=== PATIENT | male | born 1960 | race Caucasian/White ===

== ENCOUNTER 2017-09-29 10:06 | Inpatient (IN) | payer OTHER, BC ==
[~2017-09-29] VITALS: Ht 177.8 cm; Wt 75.0 kg
[2017-09-29] MEDS ORDERED: ASPI-183 PO (10:12)
[2017-09-29 10:13] VITALS: BP 152/83; PULSE 100; RESP 18; O2SAT 100
[2017-09-29] MEDS ORDERED: ceFAZolin 2 GM PREMIX 50 ML IV ONE (10:15)
[2017-09-29] MEDS ORDERED: SODIUM CHLOR 0.9% 1000 ML INJ 1,000 ML IV ONE (10:15)
[2017-09-29] MEDS ORDERED: HYDROmorphone HCL PF 1 MG/ML VIAL IV PUSH ONE ×3 (10:15→11:45)
[2017-09-29] MEDS ORDERED: GENTAMICIN 80 MG PREMIX 100 ML IV ONE (10:15)
[2017-09-29] MEDS ORDERED: HYDROmorphone HCL PF 2 MG/ML VIAL IV PUSH ONE (10:30)
[2017-09-29 10:44] LABS: AUTOMATED NEUTROPHIL # 11.9 TH/MM3 (1.8-7.7); BASOPHIL # 0.1 TH/MM3 (0-0.2); BASOPHIL % 0.8 % (0.0-2.0); EOSINOPHIL # 0.2 TH/MM3 (0-0.4); HEMATOCRIT 46.1 % (39.0-51.0); HEMOGLOBIN 15.7 GM/DL (13.0-17.0); LYMPH % 12.5 % (9.0-44.0); LYMPHOCYTE # 1.9 TH/MM3 (1.0-4.8); MEAN CELL VOLUME 87.6 FL (80.0-100.0); MEAN CORPUSCULAR HEMOGLOBIN 29.9 PG (27.0-34.0); MEAN CORPUSCULAR HGB CONC 34.1 % (32.0-36.0); MEAN PLATELET VOLUME 10.3 FL (7.0-11.0); MONO % 6.8 % (0.0-8.0); NEUT % 78.9 % (16.0-70.0); PLATELET COUNT 151 TH/MM3 (150-450); RED BLOOD COUNT 5.26 MIL/MM3 (4.50-5.90); RED CELL DISTRIBUTION WIDTH 14.4 % (11.6-17.2); WHITE BLOOD COUNT 15.1 TH/MM3 (4.0-11.0)
[2017-09-29 11:01] VITALS: BP 152/83; PULSE 93; RESP 16; O2SAT 97
[2017-09-29 11:03] LABS: ALBUMIN 3.2 GM/DL (3.4-5.0); ALT (GPT) 20 U/L (12-78); AST (GOT) 21 U/L (15-37); BICARBONATE 26.8 MEQ/L (21.0-32.0); BLOOD UREA NITROGEN 10 MG/DL (7-18); CALCIUM 8.3 MG/DL (8.5-10.1); CHLORIDE 105 MEQ/L (98-107); CREATININE 0.91 MG/DL (0.60-1.30); GLOMERULAR FILTRATION RATE 86 ML/MIN (>89); GLUCOSE,RANDOM 99 MG/DL (74-106); SODIUM (NA) 138 MEQ/L (136-145)
[2017-09-29 11:05] LABS: ALKALINE PHOSPHATASE 84 U/L (45-117); PROTHROMBIN TIME - PATIENT 10.5 SEC (9.8-11.6); TOTAL BILIRUBIN ADULT 0.4 MG/DL (0.2-1.0); TOTAL PROTEIN 7.2 GM/DL (6.4-8.2)
--- NOTE | 2017-09-29 11:10 | RADRPT ---
EXAM DATE/TIME: 09/29/2017 10:32 [place] COMPARISON: No previous studies available for comparison. INDICATIONS : Left foot pain after being crushed by a forklift today. MEDICAL HISTORY : No pertinent medical history SURGICAL HISTORY : No pertinent surgical history. ENCOUNTER: Initial ACUITY: 1 day PAIN SCORE: 10/10 LOCATION: Left foot. FINDINGS: 3 views of the left foot reveal acute fractures involving the barbara of the distal phalanges of the fi rst and third toes. A bone fragment is displaced laterally involving the first tuft fracture. No radi o opaque foreign bodies. Air is seen within the subcutaneous tissues between the first and second toe s. CONCLUSION: Acute tuft fractures of the first and third toes. Faraz Abrams Jr., MD on September 29, 2017 at 11:06 Board Certified Radiologist. This report was verified electronically.
--- NOTE | 2017-09-29 11:26 | PD ---
HPI Chief Complaint: Injury Time Seen by Provider: 10:13 Travel History International Travel<30 days: No Contact w/Intl Traveler<30days: No Traveled to known affect area: No History of Present Illness HPI Patient is a 56 year old male who comes in after an injury with a forklift. He says that the wheels were not turning and he tried to fix it somehow and it went over his foot. He complains of severe pain to the foot. He denies any other injuries. Foot was wrapped by EMS and he was given Morphine for pain prior to arrival. He says the Morphine is not helping. Severity is moderate to severe. PFSH Past Medical History Hx Anticoagulant Therapy: Yes (ASPIRIN 326 MG DAILY) Diminished Hearing: No Myocardial Infarction: Yes Tetanus Vaccination: > 5 Years Influenza Vaccination: Yes Past Surgical History Cardiac Surgery: Yes (QUAD BYPASS 2008) Coronary Artery Bypass Graft: Yes Other Surgery: Yes (SPLEENECTOMY ) Social History Alcohol Use: No Tobacco Use: Yes Substance Use: No Allergies-Medications (Allergen,Severity, Reaction): Coded Allergies: No Known Allergies (Unverified , 09/29/17) Reported Meds & Prescriptions Reported Meds & Active Scripts Active Reported Aspirin 325 Mg Tab 325 Mg PO DAILY Review of Systems Except as stated in HPI: all other systems reviewed are Neg General / Constitutional: No: Fever, Chills HENT: No: Headaches, Lightheadedness Cardiovascular: No: Chest Pain or Discomfort Respiratory: No: Shortness of Breath Gastrointestinal: No: Nausea, Vomiting Musculoskeletal: Positive: Pain Skin: Positive Other (lacerations) Neurologic: Positive: Dizziness, Sensory Disturbance Physical Exam Narrative GENERAL: Awake and alert, in no acute distress. SKIN: Laceration that extends around the left first toe and through the base of the remaining toes. Skin peals back to the middle of the foot. HEAD: Atraumatic. Normocephalic. EYES: Pupils equal and round. No scleral icterus. ENT: Mucous membranes pink and moist. NECK: Trachea midline. No JVD. CARDIOVASCULAR: Regular rate and rhythm. No murmur appreciated. RESPIRATORY: No accessory muscle use. Clear to auscultation. Breath sounds equal bilaterally. GASTROINTESTINAL: Abdomen soft, non-tender, nondistended. MUSCULOSKELETAL:Pedal pulses intact. able to move the toes on his left foot, good capillary refill. NEUROLOGICAL: Awake and alert. No obvious cranial nerve deficits. Motor grossly within normal limits. Normal speech. PSYCHIATRIC: Appropriate mood and affect; insight and judgment normal. Data Data Last Documented VS Vital Signs Date Time Temp Pulse Resp B/P (MAP) Pulse Ox O2 Delivery O2 Flow Rate FiO2 09/29/17 11:15 15 09/29/17 11:01 93 152/83 (106) 97 Orders Orders Iv Access Insert/Monitor (09/29/17 10:13) Complete Blood Count With Diff (09/29/17 10:13) Comprehensive Metabolic Panel (09/29/17 10:13) Act Partial Throm Time (Ptt) (09/29/17 10:13) Prothrombin Time / Inr (Pt) (09/29/17 10:13) Type And Screen (09/29/17 10:13) Sodium Chlor 0.9% 1000 Ml Inj (Ns 1000 M (09/29/17 10:15) Gentamicin 80 Mg Premix (Gentamicin 80 M (09/29/17 10:15) Cefazolin 2 Gm Premix (Ancef 2 Gm Premix (09/29/17 10:15) Foot, Complete ([id number]) (09/29/17 ) Hydromorphone Pf Inj (Dilaudid Pf Inj) (09/29/17 10:30) Hydromorphone Pf Inj (Dilaudid Pf Inj) (09/29/17 11:15) Admit To Inpatient (09/29/17 ) Vital Signs (Adult) Q4H (09/29/17 11:25) Activity Oob With Assistance (09/29/17 11:25) Diet Npo (09/29/17 Lunch) Sodium Chlor 0.9% 1000 Ml Inj (Ns 1000 M (09/29/17 12:00) Sodium Chloride 0.9% Flush (Ns Flush) (09/29/17 11:30) Sodium Chloride 0.9% Flush (Ns Flush) (09/29/17 21:00) Acetaminophen (Tylenol) (09/29/17 11:30) Ondansetron Inj (Zofran Inj) (09/29/17 11:30) Basic Metabolic Panel (Bmp) (09/30/17 06:00) Complete Blood Count With Diff (09/30/17 06:00) Resp Oxygen Brain C Titrat 1-4 L (09/29/17 ) Pt Request For Service (09/29/17 11:25) Case Management Consult (09/29/17 11:25) Scd Bilateral/Knee High CARINA.BID (09/29/17 11:25) Zach Bilateral/Knee High CARINA.QSHIFT (09/29/17 11:25) Naloxone Inj (Narcan Inj) (09/29/17 11:30) Docusate Sodium-Senna (Jane-Colace) (09/29/17 21:00) Magnesium Hydroxide Liq (Milk Of Magnesi (09/29/17 11:30) Sennosides (Senokot) (09/29/17 11:30) Bisacodyl Supp (Dulcolax Supp) (09/29/17 11:30) Lactulose Liq (Lactulose Liq) (09/29/17 11:30) Inpatient Certification (09/29/17 ) Admit Order (Ed Use Only) (09/29/17 ) Acetamin-Hydrocod 325-5 Mg ([place] 5-325 (09/29/17 11:30) Acetamin-Hydrocod 325-10 Mg ([place] 10-32 (09/29/17 11:30) Morphine Inj (Morphine Inj) (09/29/17 11:30) Hydromorphone Pf Inj (Dilaudid Pf Inj) (09/29/17 11:45) Labs Laboratory Tests Test 09/29/17 10:15 White Blood Count 15.1 TH/MM3 Red Blood Count 5.26 MIL/MM3 Hemoglobin 15.7 GM/DL Hematocrit 46.1 % Mean Corpuscular Volume 87.6 FL Mean Corpuscular Hemoglobin 29.9 PG Mean Corpuscular Hemoglobin Concent 34.1 % Red Cell Distribution Width 14.4 % Platelet Count 151 TH/MM3 Mean Platelet Volume 10.3 FL Neutrophils (%) (Auto) 78.9 % Lymphocytes (%) (Auto) 12.5 % Monocytes (%) (Auto) 6.8 % Eosinophils (%) (Auto) 1.0 % Basophils (%) (Auto) 0.8 % Neutrophils # (Auto) 11.9 TH/MM3 Lymphocytes # (Auto) 1.9 TH/MM3 Monocytes # (Auto) 1.0 TH/MM3 Eosinophils # (Auto) 0.2 TH/MM3 Basophils # (Auto) 0.1 TH/MM3 CBC Comment DIFF FINAL Differential Comment Prothrombin Time 10.5 SEC Prothromb Time International Ratio 1.0 RATIO Activated Partial Thromboplast Time 25.5 SEC Blood Urea Nitrogen 10 MG/DL Creatinine 0.91 MG/DL Random Glucose 99 MG/DL Total Protein 7.2 GM/DL Albumin 3.2 GM/DL Calcium Level 8.3 MG/DL Alkaline Phosphatase 84 U/L Aspartate Amino Transf (AST/SGOT) 21 U/L Alanine Aminotransferase (ALT/SGPT) 20 U/L Total Bilirubin 0.4 MG/DL Sodium Level 138 MEQ/L Potassium Level 3.7 MEQ/L Chloride Level 105 MEQ/L Carbon Dioxide Level 26.8 MEQ/L Anion Gap 6 MEQ/L Estimat Glomerular Filtration Rate 86 ML/MIN Triglycerides Level 82 MG/DL Cholesterol Level 174 MG/DL LDL Cholesterol 99 MG/DL HDL Cholesterol 58.3 MG/DL Cholesterol/HDL Ratio 2.98 RATIO MDM Medical Decision Making Medical Screen Exam Complete: Yes Emergency Medical Condition: Yes Medical Record Reviewed: Yes Differential Diagnosis fracture vs laceration vs degloving injury Narrative Course Patient is a 56-year-old male who comes in after a forklift rolled over his foot. Exam shows partial degloving of the left foot however, blood flow and sensation is intact to the toes. Wound was cleaned with normal saline and Betadine. Given IV antibiotics and tetanus. Given pain medicine. X-ray shows fracture of the distal barbara of the first and third toe. Podiatry consulted, Dr. Mccoy will take the patient to the OR later today. Patient admitted for further management. Diagnosis Primary Impression: Accident caused by forklift Qualified Codes: V83.9XXD - Unspecified occupant of special industrial vehicle injured in nontraffic accident, subsequent encounter Additional Impressions: Laceration of left foot with complication Qualified Codes: S91.312D - Laceration without foreign body, left foot, subsequent encounter Crush injury of left foot Qualified Codes: S97.82XD - Crushing injury of left foot, subsequent encounter Open fracture of left toe Qualified Codes: S92.422D - Displaced fracture of distal phalanx of left great toe, subsequent encounter for fracture with routine healing Admitting Information Admitting Physician Requests: Admit Veda Josue MD Sep 29, 2017 11:26
[2017-09-29] MEDS ORDERED: BISACODYL 10 MG SUPP RECTAL PRN ×2 (11:30→18:30)
[2017-09-29] MEDS ORDERED: LACTULOSE SYRUP 20 GM/30 ML CUP PO PRN ×2 (11:30→18:30)
[2017-09-29] MEDS ORDERED: SENNOSIDES 8.6 MG TAB PO PRN ×2 (11:30→18:30)
[2017-09-29] MEDS ORDERED: NALOXONE HCL 0.4 MG/ML AMP IV PUSH PRN (11:30)
[2017-09-29] MEDS ORDERED: ONDANSETRON HCL 4 MG/2 ML VIAL IVP PRN (11:30)
[2017-09-29] MEDS ORDERED: MORPHINE SULFATE 2 MG/ML INJ IV PUSH PRN (11:30)
[2017-09-29] MEDS ORDERED: MAGNESIUM HYDROXIDE SUSP 30 ML CUP PO PRN ×2 (11:30→18:30)
[2017-09-29] MEDS ORDERED: SODIUM CHLORIDE 0.9% FLUSH 10 ML FLUSH IV FLUSH PRN (11:30)
[2017-09-29] MEDS ORDERED: ACETAMINOPHEN/HYDROcodone 325 MG/5 MG TAB PO PRN (11:30)
[2017-09-29] MEDS ORDERED: ACETAMINOPHEN 325 MG TAB PO PRN (11:30)
[2017-09-29] MEDS ORDERED: GLYCOPYRROLATE 1 MG/5 ML SYRINGE IV PUSH ONE (12:00)
[2017-09-29] MEDS ORDERED: ePHEDrine/NS 25 MG/5 ML SYRINGE IV ONE (12:00)
[2017-09-29] MEDS ORDERED: PROPOFOL 200 MG/20 ML AMP IV ONE ×2 (12:00)
[2017-09-29] MEDS ORDERED: LIDOCAINE HCL 1% PF 5 ML SYRINGE OTHER ONE (12:00)
[2017-09-29] MEDS ORDERED: ROCURONIUM INJ 50 MG/5 ML SYRINGE IV PUSH ONE (12:00)
[2017-09-29] MEDS ORDERED: PHENYLEPH/NS 1000 MCG/10 ML SYR IV ONE (12:00)
[2017-09-29] MEDS ORDERED: NEOSTIGMINE 5 MG/5 ML SYRINGE IV PUSH ONE (12:00)
[2017-09-29] MEDS ORDERED: ONDANSETRON HCL 4 MG/2 ML VIAL IV ONE (12:00)
[2017-09-29] MEDS: SODIUM CHLOR 0.9% 1000 ML INJ 1,000 ML IV SCH ×2 (13:00→19:04)
[2017-09-29 13:03] VITALS: BP 122/73; PULSE 80; RESP 16; TEMP 98.4; O2SAT 96
--- NOTE | 2017-09-29 13:18 | HHI.HP ---
HPI Service [facility] Primary Care Physician Non-Staff Admission Diagnosis foot degloving, open fracture Diagnoses: Chief Complaint: pain left foot Travel History International Travel<30 Days: No Contact w/Intl Traveler <30 Da: No Traveled to Known Affected Are: No History of Present Illness Patient is a 56 year old male who comes in after an injury with a forklift. He says that the wheels were not turning and he tried to fix it somehow and it went over his foot. He has a h/p Coronary artery disease CABG in 2008, patient reports not taking metoprolol or Lipitor say is he stopped taking these medications for years ago. He is currently taking only aspirin. He denies any chest pain, palpitations, shortness of breath, nausea, lightheadedness. He was noted tachycardic on admission and was blood pressure readings are higher side however he was seen in pain at that time. Current medications are controlling the pain. Is nothing by mouth. Discussed with Dr. Mccoy podiatry plan for surgery at 4 PM today. No other complaints at this time. Review of Systems Except as stated in HPI: all other systems reviewed are Neg Past Family Social History Past Medical History Coronary artery disease CABG in 2008, patient reports not taking metoprolol or Lipitor say is he stopped taking these medications for years ago. He is currently taking only aspirin Hyperlipidemia Past Surgical History CABG 2009 Splenectomy in 1978 Reported Medications Reported Meds & Active Scripts Active Reported Aspirin 325 Mg Tab 325 Mg PO DAILY Allergies: Coded Allergies: No Known Allergies (Unverified , 09/29/17) Family History With heart problems Father healthy at the age of 82 Old brother with heart problems stent placed recently Social History Denies alcohol use or illicit drug use. Smoking 1 pack per day Physical Exam Vital Signs Vital Signs Date Time Temp Pulse Resp B/P (MAP) Pulse Ox O2 Delivery O2 Flow Rate FiO2 09/29/17 13:03 98.4 80 16 122/73 (89) 96 Room Air 09/29/17 12:15 15 09/29/17 11:15 15 09/29/17 11:01 93 16 152/83 (106) 97 09/29/17 10:13 100 18 152/83 (475) 100 Physical Exam GENERAL: This is a well-nourished, well-developed patient, in no apparent distress. SKIN: No rashes, ecchymoses or lesions. Cool and dry. HEAD: Atraumatic. Normocephalic. No temporal or scalp tenderness. EYES: Pupils equal round and reactive. Extraocular motions intact. No scleral icterus. No injection or drainage. ENT: Nose without bleeding, purulent drainage or septal hematoma. Throat without erythema, tonsillar hypertrophy or exudate. Uvula midline. Airway patent. NECK: Trachea midline. No JVD or lymphadenopathy. Supple, nontender, no meningeal signs. CARDIOVASCULAR: Regular rate and rhythm without murmurs, gallops, or rubs. RESPIRATORY: Clear to auscultation. Breath sounds equal bilaterally. No wheezes , rales, or rhonchi. GASTROINTESTINAL: Abdomen soft, non-tender, nondistended. No hepato-splenomegaly , or palpable masses. No guarding. MUSCULOSKELETAL: Left foot with a dressing on c/d/i. No calf tenderness. Negative Homans sign bilaterally. NEUROLOGICAL: Awake and alert. Cranial nerves II through XII intact. Motor and sensory grossly within normal limits. Five out of 5 muscle strength in all muscle groups. Normal speech. Laboratory Laboratory Tests Test 09/29/17 10:15 White Blood Count 15.1 Red Blood Count 5.26 Hemoglobin 15.7 Hematocrit 46.1 Mean Corpuscular Volume 87.6 Mean Corpuscular Hemoglobin 29.9 Mean Corpuscular Hemoglobin Concent 34.1 Red Cell Distribution Width 14.4 Platelet Count 151 Mean Platelet Volume 10.3 Neutrophils (%) (Auto) 78.9 Lymphocytes (%) (Auto) 12.5 Monocytes (%) (Auto) 6.8 Eosinophils (%) (Auto) 1.0 Basophils (%) (Auto) 0.8 Neutrophils # (Auto) 11.9 Lymphocytes # (Auto) 1.9 Monocytes # (Auto) 1.0 Eosinophils # (Auto) 0.2 Basophils # (Auto) 0.1 CBC Comment DIFF FINAL Differential Comment Prothrombin Time 10.5 Prothromb Time International Ratio 1.0 Activated Partial Thromboplast Time 25.5 Blood Urea Nitrogen 10 Creatinine 0.91 Random Glucose 99 Total Protein 7.2 Albumin 3.2 Calcium Level 8.3 Alkaline Phosphatase 84 Aspartate Amino Transf (AST/SGOT) 21 Alanine Aminotransferase (ALT/SGPT) 20 Total Bilirubin 0.4 Sodium Level 138 Potassium Level 3.7 Chloride Level 105 Carbon Dioxide Level 26.8 Anion Gap 6 Estimat Glomerular Filtration Rate 86 Result Diagram: 09/29/17 1015 09/29/17 1015 Imaging Last Impressions Foot X-Ray 09/29/17 0000 Signed Impressions: Service Date/Time: Friday, September 29, 2017 10:32 - CONCLUSION: Acute tuft fractures of the first and third toes. MD Tam Johnson Jr. VTE Risk Assessment Tam VTE Risk Assessment: Mod/High Risk (score >= 2) Caprini Risk Assessment Model Point Value = 1 Point Value = 2 Point Value = 3 Point Value = 5 Age 41-60 Minor surgery BMI > 25 kg/m2 Swollen legs Varicose veins or History of unexplained or recurrent spontaneous Oral contraceptives or hormone replacement Sepsis (< 1 month) Serious lung disease, including pneumonia (< 1 month) Abnormal pulmonary function Acute myocardial infarction Congestive heart failure (< 1 month) History of inflammatory bowel disease Medical patient at bed rest Age 61-74 Arthroscopic surgery Major open surgery (> 45 min) Laparoscopic surgery (> 45 min) Malignancy Confined to bed (> 72 hours) Immobilizing plaster cast Central venous access Age >= 75 History of VTE Family history of VTE Factor V Leiden Prothrombin [id number] Lupus anticoagulant Anticardiolipin antibodies Elevated serum homocysteine Heparin-induced thrombocytopenia Other congenital or acquired thrombophilia Stroke (< 1 month) Elective arthroplasty Hip, pelvis, or leg fracture Acute spinal cord injury (< 1 month) Prophylaxis Regimen Total Risk Factor Score Risk Level Prophylaxis Regimen 0-1 Low Early ambulation 2 Moderate Order ONE of the following: *Sequential Compression Device (SCD) *Heparin 5000 units SQ BID 3-4 Higher Order ONE of the following medications: *Heparin 5000 units SQ TID *Enoxaparin/Lovenox 40 mg SQ daily (WT < 150 kg, CrCl > 30 mL/min) *Enoxaparin/Lovenox 30 mg SQ daily (WT < 150 kg, CrCl > 10-29 mL/min) *Enoxaparin/Lovenox 30 mg SQ BID (WT < 150 kg, CrCl > 30 mL/min) AND/OR *Sequential Compression Device (SCD) 5 or more Highest Order ONE of the following medications: *Heparin 5000 units SQ TID (Preferred with Epidurals) *Enoxaparin/Lovenox 40 mg SQ daily (WT < 150 kg, CrCl > 30 mL/min) *Enoxaparin/Lovenox 30 mg SQ daily (WT < 150 kg, CrCl > 10-29 mL/min) *Enoxaparin/Lovenox 30 mg SQ BID (WT < 150 kg, CrCl > 30 mL/min) AND *Sequential Compression Device (SCD) Assessment and Plan Assessment and Plan 56-year-old male with Left foot fracture X-rays reviewed findings were discussed with physician and patient Keep n.p.o. Dr. Mccoy podiatry consulted, plan for surgery 09/29/17 Pain medications IV and p.o. for pain scale Coronary artery disease CABG in 2008, patient reports not taking metoprolol or Lipitor say is he stopped taking these medications for years ago. He is currently taking only aspirin. Hold aspirin as patient will go for surgery. Start metoprolol and atorvastatin after surgery and give her discharge as well. Check lipid panel. Check A1c. DVT prophylaxis per surgeon Discussed Condition With Patient, nurse, ED physician Physician Certification 2 Midnight Certification Type: Admission for Inpatient Services Order for Inpatient Services The services are ordered in accordance with Medicare regulations or non- Medicare payer requirements, as applicable. In the case of services not specified as inpatient-only, they are appropriately provided as inpatient services in accordance with the 2-midnight benchmark. Estimated LOS (days): 3 days is the estimated time the patient will need to remain in the hospital, assuming treatment plan goals are met and no additional complications. Post-Hospital Plan: Home Tennille Grey MD Sep 29, 2017 13:18
[2017-09-29 14:18] VITALS: O2SAT 96
[2017-09-29] MEDS: ACETAMINOPHEN/HYDROcodone 325 MG/10 MG TAB PO PRN ×2 (14:23→20:28)
[2017-09-29] MEDS ORDERED: SODIUM CHLORID 0.9% 500 ML IV PRN (15:15)
[2017-09-29] MEDS ORDERED: POVIDONE IODINE 5% (ANTISEPSIS KIT) 4 APPLICATIONS EACH NARE PRN (15:15)
[2017-09-29] MEDS ORDERED: LACTATED RINGER'S 1000 ML IV PRN (15:15)
[2017-09-29] MEDS ORDERED: METOPROLOL TARTRATE 25 MG TAB PO PRN (15:15)
[2017-09-29] MEDS ORDERED: INSULIN HUMAN REGULAR 1,000 UNITS/10 ML VIAL SQ PRN (15:30)
[2017-09-29] MEDS ORDERED: CHLORHEXIDINE GLUCONATE 2 % 1 PACK (2 CLOTHS) TOPICAL PRN (15:30)
[2017-09-29] MEDS ORDERED: BUPIVACAINE/EPINEPHRINE 0.25% PF 10 ML VIAL ONE (15:50)
[2017-09-29] MEDS ORDERED: NEOMYCIN/POLYMYXIN 1 ML G.U. IRRIGANT ONE (15:51)
[2017-09-29] MEDS ORDERED: BUPIVACAINE HCL PF 0.25% 30 ML VIAL ONE (15:55)
--- NOTE | 2017-09-29 16:57 | PD.CONS ---
History of Present Illness Service Podiatry- foot and ankle surgery Consult Requested By ER physician and hospitalist admitting team Reason for Consult Left foot complex laceration partial degloving of foot open fracture first and third digit Primary Care Physician Non-Staff Diagnoses: (1) Open fracture of left toe (2) Laceration of left foot with complication (3) Crush injury of left foot (4) Accident caused by forklift History of Present Illness 56-year-old male who sustained injury while at work involving his foot and trying to manipulate a forklift. No other injuries noted other than the left foot. The patient was wearing work boot Review of Systems Except as stated in HPI: all other systems reviewed are Neg Past Family Social History Allergies: Coded Allergies: No Known Allergies (Unverified , 09/29/17) Past Medical History Coronary artery disease CABG in 2008, patient reports not taking metoprolol or Lipitor say is he stopped taking these medications for years ago. He is currently taking only aspirin Hyperlipidemia Past Surgical History CABG 2008 Splenectomy in 1978 Reported Medications Aspirin 325 Mg Tab 325 Mg PO DAILY Active Ordered Medications Current Medications Hydromorphone HCl (Dilaudid Pf Inj) 1 mg ONCE ONCE IV PUSH ; Start 09/29/17 at 10:15; Stop 09/29/17 at 10:16; Status Cancel Sodium Chloride 1,000 ml @ 999 mls/hr BOLUS ONCE IV Last administered on 09/29at 10:46; Start 09/29/17 at 10:15; Stop 09/29/17 at 12:30; Status DC Gentamicin Sulfate/Sodium Chloride 100 ml @ 200 mls/hr ONCE ONCE IV Last administered on 09/29/17at 10:55; Start 09/29/17 at 10:15; Stop 09/29/17 at 12:30 ; Status DC Cefazolin Sodium/ Dextrose 50 ml @ 100 mls/hr ONCE ONCE IV Last administered on 09/29/17at 10:46; Start 09/29/17 at 10:15; Stop 09/29/17 at 12:30; Status DC Hydromorphone HCl (Dilaudid Pf Inj) 1 mg ONCE ONCE IV PUSH Last administered on 09/29/17at 10:45; Start 09/29/17 at 10:30; Stop 09/29/17 at 12:30; Status DC Hydromorphone HCl (Dilaudid Pf Inj) 1 mg ONCE ONCE IV PUSH ; Start 09/29/17 at 11:15; Stop 09/29/17 at 11:33; Status DC Sodium Chloride 1,000 ml @ 100 mls/hr Q10H IV Last administered on 09/29/17at 13:00; Start 09/29/17 at 12:00 Sodium Chloride (NS Flush) 2 ml UNSCH PRN IV FLUSH FLUSH AFTER USING IV ACCESS ; Start 09/29/17 at 11:30 Sodium Chloride (NS Flush) 2 ml BID IV FLUSH ; Start 09/29/17 at 21:00 Acetaminophen (Tylenol) 650 mg Q4H PRN PO TEMP > 100.4; Start 09/29/17 at 11:30 Ondansetron HCl (Zofran Inj) 4 mg Q6H PRN IVP NAUSEA OR VOMITING; Start at 11:30 Naloxone HCl (Narcan Inj) 0.4 mg UNSCH PRN IV PUSH SEE LABEL COMMENTS; Start at 11:30 Senna/Docusate Sodium (Jane-Colace) 1 tab BID PO ; Start 09/29/17 at 21:00 Magnesium Hydroxide (Milk Of Magnesia Liq) 30 ml Q12H PRN PO Mild constipation ; Start 09/29/17 at 11:30 Sennosides (Senokot) 17.2 mg Q12H PRN PO Moderate constipation; Start 09/29/17 at 11:30 Bisacodyl (Dulcolax Supp) 10 mg DAILY PRN RECTAL SEVERE CONSITIPATION; Start at 11:30 Lactulose (Lactulose Liq) 30 ml DAILY PRN PO SEVERE CONSITIPATION; Start at 11:30 Acetaminophen/ Hydrocodone Bitart ([place] 5-325 Mg) 1 tab Q4H PRN PO PAIN SCALE 3 TO 5; Start 09/29/17 at 11:30 Acetaminophen/ Hydrocodone Bitart ([place] 10-325 Mg) 1 tab Q4H PRN PO PAIN SCALE 6 TO 10 Last administered on 09/29/17at 14:23; Start 09/29/17 at 11:30 Morphine Sulfate (Morphine Inj) 2 mg Q4H PRN IV PUSH BREAKTHROUGH PAIN; Start 09/29/17 at 11:30 Hydromorphone HCl (Dilaudid Pf Inj) 1 mg ONCE ONCE IV PUSH Last administered on 09/29/17at 11:46; Start 09/29/17 at 11:45; Stop 09/29/17 at 12:35; Status DC Lactated Ringer's 1,000 ml @ 30 mls/hr Q24H PRN IV SEE LABEL COMMENTS Last administered on 09/29/17at 15:15; Start 09/29/17 at 15:15; Stop 10/02/17 at 15:14 Sodium Chloride 500 ml @ 30 mls/hr [id number] PRN IV SEE LABEL COMMENTS; Start at 15:15; Stop 10/02/17 at 15:14 Metoprolol Tartrate (Lopressor) 25 mg TECHNICAL ASST PRN PO SEE LABEL COMMENTS; Start 09/29/17 at 15:15; Stop 10/02/17 at 15:14 Povidone Iodine (Betadine 5% Antisepsis Kit) 1 applic TECHNICAL ASST PRN EACH NARE SEE LABEL COMMENTS; Start 09/29/17 at 15:15; Stop 10/02/17 at 15:14 Chlorhexidine Gluconate (Chlorhexidine 2% Cloth) 3 pack TECHNICAL ASST PRN TOPICAL SEE LABEL COMMENTS; Start 09/29/17 at 15:30; Stop 10/02/17 at 15:29 Insulin Human Regular (NovoLIN R INJ) See Protocol Table ... TECHNICAL ASST PRN SQ SEE PROTOCOL TABLE; Start 09/29/17 at 15:30; Stop 10/02/17 at 15:29 Bupivacaine HCl/ Epinephrine Bitart (Sensorcaine-Epinephrine Pf 0.25% Inj) 10 ml STK-MED ONCE .ROUTE ; Start 09/29/17 at 15:50; Stop 09/29/17 at 15:51; Status DC Neomycin/Polymyxin (Neosporin G.u. Irr) 3 ml STK-MED ONCE .ROUTE ; Start at 15:51; Stop 09/29/17 at 15:52; Status DC Bupivacaine HCl (Marcaine Pf 0.25% Inj) 30 ml STK-MED ONCE .ROUTE ; Start at 15:55; Stop 09/29/17 at 15:56; Status DC Family History With heart problems Father healthy at the age of 82 Old brother with heart problems stent placed recently Social History denies alcohol use or illicit drug use. Smoking 1 pack per day, employed Physical Exam Vital Signs Vital Signs Date Time Temp Pulse Resp B/P (MAP) Pulse Ox O2 Delivery O2 Flow Rate FiO2 09/29/17 14:50 09/29/17 14:18 96 09/29/17 13:03 98.4 80 16 122/73 (89) 96 Room Air 09/29/17 12:15 15 09/29/17 11:15 15 09/29/17 11:01 93 16 152/83 (106) 97 09/29/17 10:13 100 18 152/83 (106) 100 Physical Exam GENERAL: This is a well-nourished, well-developed patient, in no apparent distress. SKIN: No rashes, ecchymoses or lesions. Cool and dry. HEAD: Atraumatic. Normocephalic. No temporal or scalp tenderness. EYES: Pupils equal round and reactive. Extraocular motions intact. No scleral icterus. No injection or drainage. NECK: Trachea midline. No JVD or lymphadenopathy. CARDIOVASCULAR: Pedal pulses palpable distal RESPIRATORY: Nonlabored respirations MUSCULOSKELETAL: Extremities without clubbing, cyanosis, or edema. Left foot with circumferential laceration starting at the medial aspect of the hallux running into the sulcus beneath the digits 2345, full-thickness laceration with exposed deep tendon and bone, decreased range of motion of the digits however plantar flexion still remains intact in digits 1-3 and 4, Lisfranc joint without crepitus or instability, medial instep laceration noted, capillary fill time within normal limits to the hallux without any signs of delayed capillary fill time, mild decreased capillary fill time to the lesser digits, the foot is warm hindfoot and ankle viable without any injury NEUROLOGICAL: Awake and alert. Cranial nerves II through XII intact. Motor and sensory grossly within normal limits. Five out of 5 muscle strength in all muscle groups. Normal speech. Mild decreased sensation to the distal aspect of the left forefoot no pain out of proportion Laboratory Laboratory Tests Test 09/29/17 10:15 White Blood Count 15.1 Red Blood Count 5.26 Hemoglobin 15.7 Hematocrit 46.1 Mean Corpuscular Volume 87.6 Mean Corpuscular Hemoglobin 29.9 Mean Corpuscular Hemoglobin Concent 34.1 Red Cell Distribution Width 14.4 Platelet Count 151 Mean Platelet Volume 10.3 Neutrophils (%) (Auto) 78.9 Lymphocytes (%) (Auto) 12.5 Monocytes (%) (Auto) 6.8 Eosinophils (%) (Auto) 1.0 Basophils (%) (Auto) 0.8 Neutrophils # (Auto) 11.9 Lymphocytes # (Auto) 1.9 Monocytes # (Auto) 1.0 Eosinophils # (Auto) 0.2 Basophils # (Auto) 0.1 CBC Comment DIFF FINAL Differential Comment Prothrombin Time 10.5 Prothromb Time International Ratio 1.0 Activated Partial Thromboplast Time 25.5 Blood Urea Nitrogen 10 Creatinine 0.91 Random Glucose 99 Total Protein 7.2 Albumin 3.2 Calcium Level 8.3 Alkaline Phosphatase 84 Aspartate Amino Transf (AST/SGOT) 21 Alanine Aminotransferase (ALT/SGPT) 20 Total Bilirubin 0.4 Sodium Level 138 Potassium Level 3.7 Chloride Level 105 Carbon Dioxide Level 26.8 Anion Gap 6 Estimat Glomerular Filtration Rate 86 Result Diagram: 09/29/17 1015 09/29/17 1015 Imaging Last 72 hours Impressions Foot X-Ray 09/29/17 0000 Signed Impressions: Service Date/Time: Friday, September 29, 2017 10:32 - CONCLUSION: Acute tuft fractures of the first and third toes. 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 Risks and benefits explained to the patient including but not limited to numbness, burning , stinging, loss of digits, deep infection, need for more surgery at a later date. The patient was consented for left foot complex laceration repair irrigation incision drainage debridement with possible wound VAC application. Patient will need to be monitored for at least 24 hours, EKG ordered in the preop setting. Questions answered by the patient will need to refrain from work until he heals his injuries. We'll make sure tetanus is updated and continue IV antibiotics for the next 8- 12 hours. 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
[2017-09-29] MEDS ORDERED: ceFAZolin INJ 1,000 MG VIAL ONE (17:23)
[2017-09-29] MEDS ORDERED: Post-op Orders (for Pharmacy) XX ONE (18:30)
[2017-09-29] MEDS ORDERED: *MEPERIDINE 25 MG INJ VIAL PERIprocedural Use ONLY ONE (18:37)
[2017-09-29] MEDS ORDERED: *morphine SULFATE 4 MG/ML PERIprocedure ONLY ONE (18:43)
[2017-09-29] MEDS ORDERED: MIDAZOLAM HCL 2 MG/2 ML VIAL ONE (18:44)
--- NOTE | 2017-09-29 18:47 | HHI.PR ---
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
[2017-09-29] MEDS ORDERED: HYDROmorphone HCL PF 2 MG/ML VIAL ONE (18:49)
[2017-09-29] MEDS ORDERED: DO NOT ADM ANY ANTICOAGULANT DRUGS PRN (18:55)
[2017-09-29] MEDS: KETOROLAC TROMETHAMINE 30 MG/ML (IVP) VIAL IV PUSH PRN (19:02)
[2017-09-29] MEDS: DOCUSATE SODIUM 50 MG/SENNA 8.6 MG TAB PO SCH (20:28)
[2017-09-29] MEDS: SODIUM CHLORIDE 0.9% FLUSH 10 ML FLUSH IV FLUSH SCH (20:28)
[2017-09-29 20:40] VITALS: BP 98/58; PULSE 89; RESP 18; TEMP 96.3; O2SAT 98
[2017-09-29 20:55] LABS: CHOLESTEROL/ HDL RATIO 2.98 RATIO; HDL CHOLESTEROL 58.3 MG/DL (40.0-60.0)
[2017-09-30] VITALS (8 sets, daily range): BP systolic 110–146; BP diastolic 60–86; PULSE 60–86; RESP 18; TEMP 96.6–98.1; O2SAT 93–99
[2017-09-30] MEDS: ACETAMINOPHEN/HYDROcodone 325 MG/10 MG TAB PO PRN ×6 (00:05→23:45)
[2017-09-30 07:11] LABS: AUTOMATED NEUTROPHIL # 9.6 TH/MM3 (1.8-7.7); BASOPHIL # 0.2 TH/MM3 (0-0.2); BASOPHIL % 1.3 % (0.0-2.0); EOSINOPHIL # 0.3 TH/MM3 (0-0.4); EOSINOPHIL % 2.1 % (0.0-4.0); HEMATOCRIT 39.3 % (39.0-51.0); HEMOGLOBIN 13.1 GM/DL (13.0-17.0); LYMPHOCYTE # 1.7 TH/MM3 (1.0-4.8); MEAN CELL VOLUME 88.6 FL (80.0-100.0); MEAN CORPUSCULAR HEMOGLOBIN 29.5 PG (27.0-34.0); MEAN CORPUSCULAR HGB CONC 33.3 % (32.0-36.0); MEAN PLATELET VOLUME 10.4 FL (7.0-11.0); MONO % 11.5 % (0.0-8.0); MONOCYTE # 1.5 TH/MM3 (0-0.9); NEUT % 72.1 % (16.0-70.0); PLATELET COUNT 137 TH/MM3 (150-450); RED BLOOD COUNT 4.43 MIL/MM3 (4.50-5.90); RED CELL DISTRIBUTION WIDTH 14.4 % (11.6-17.2); WHITE BLOOD COUNT 13.3 TH/MM3 (4.0-11.0)
[2017-09-30 07:38] LABS: BICARBONATE 27.8 MEQ/L (21.0-32.0); CREATININE 0.78 MG/DL (0.60-1.30)
[2017-09-30] MEDS: SODIUM CHLOR 0.9% 1000 ML INJ 1,000 ML IV SCH ×3 (08:00→19:25)
[2017-09-30] MEDS: SODIUM CHLORIDE 0.9% FLUSH 10 ML FLUSH IV FLUSH SCH ×2 (09:00→19:24)
[2017-09-30] MEDS: DOCUSATE SODIUM 50 MG/SENNA 8.6 MG TAB PO SCH ×2 (09:10→19:28)
--- NOTE | 2017-09-30 12:42 | HHI.PR ---
Subjective Remarks in no distress. complaining of pain to the left leg. afebrile. Objective Vitals Vital Signs Date Time Temp Pulse Resp B/P (MAP) Pulse Ox O2 Delivery O2 Flow Rate FiO2 09/30/17 11:38 96.7 66 18 133/74 (93) 97 09/30/17 09:55 98 21 09/30/17 07:37 96.6 67 18 114/68 (83) 97 09/30/17 07:34 Room Air 09/30/17 04:11 97.6 81 18 115/86 (96) 99 09/30/17 00:16 96.7 60 18 110/60 (77) 98 09/29/17 20:40 96.3 89 18 98/58 (71) 98 09/29/17 20:10 80 14 101/60 (74) 98 Nasal Cannula 2 09/29/17 20:00 72 14 98/51 (67) 98 Nasal Cannula 2 09/29/17 19:45 75 14 111/63 (79) 96 Nasal Cannula 2 09/29/17 19:30 79 14 104/52 (69) 99 Nasal Cannula 2 09/29/17 19:15 77 14 110/54 (72) 100 Nasal Cannula 2 09/29/17 19:00 77 14 131/75 (93) 100 Nasal Cannula 2 09/29/17 18:45 87 14 130/78 (95) 100 Nasal Cannula 2 09/29/17 18:35 98.0 94 14 132/78 (96) 99 Nasal Cannula 2 09/29/17 14:50 09/29/17 14:18 96 09/29/17 13:03 98.4 80 16 122/73 (89) 96 Room Air I/O 09/29/17 09/29/17 09/29/17 09/30/17 09/30/17 09/30/17 07:00 15:00 23:00 07:00 15:00 23:00 Intake Total 1150 ml 1740 ml 480 ml Output Total 200 ml 500 ml Balance 1150 ml 1540 ml -20 ml Intake Oral 240 ml 480 ml IV Total 1150 ml Other 1500 ml Output Urine Total 100 ml 500 ml Estimated Blood Loss 100 ml # Voids 1 1 # Bowel Movements 0 0 Result Diagram: 09/30/17 0635 09/30/17 0635 Imaging Last Impressions Foot X-Ray 09/29/17 0000 Signed Impressions: Service Date/Time: Friday, September 29, 2017 10:32 - CONCLUSION: Acute tuft fractures of the first and third toes. Faraz Abrams Jr., MD Objective Remarks GENERAL: This is a well-nourished, well-developed patient, in no apparent distress. CARDIOVASCULAR: Regular rate and regular rhythm without murmurs, gallops, or rubs. RESPIRATORY: Clear to auscultation. Breath sounds equal bilaterally. No wheezes , rales, or rhonchi. GASTROINTESTINAL: Abdomen soft, non-tender, nondistended. Normal, active bowel sounds MUSCULOSKELETAL: left leg covered with clean dressing. NEURO: Alert & Oriented x4 to person, place, time, situation. Moves all ext x4 Procedures Incision drainage debridement open fractures digits, fasciotomy (multiple) foot , repair of complex laceration >10cm Medications and IVs Inpatient Medications Acetaminophen (Tylenol) 650 mg Q4H PRN PO TEMP > 100.4; Start 09/29/17 at 11:30 Acetaminophen/ Hydrocodone Bitart ([place] 5-325 Mg) 1 tab Q4H PRN PO PAIN SCALE 3 TO 5; Start 09/29/17 at 11:30 Acetaminophen/ Hydrocodone Bitart ([place] 10-325 Mg) 1 tab Q4H PRN PO PAIN SCALE 6 TO 10 Last administered on 09/30/17at 09:10; Start 09/29/17 at 11:30 Bisacodyl (Dulcolax Supp) 10 mg DAILY PRN RECTAL SEVERE CONSITIPATION; Start at 18:30 Cefazolin Sodium/ Dextrose 50 ml @ 100 mls/hr ONCE ONCE IV Last administered on 09/29/17at 10:46; Start 09/29/17 at 10:15; Stop 09/29/17 at 12:30; Status DC Chlorhexidine Gluconate (Chlorhexidine 2% Cloth) 3 pack AIR DEFENSE SPECIALIST PRN TOPICAL SEE LABEL COMMENTS; Start 09/29/17 at 15:30; Stop 10/02/17 at 15:29 Gentamicin Sulfate/Sodium Chloride 100 ml @ 200 mls/hr ONCE ONCE IV Last administered on 09/29/17at 10:55; Start 09/29/17 at 10:15; Stop 09/29/17 at 12:30 ; Status DC Hydromorphone HCl (Dilaudid Pf Inj) 1 mg ONCE ONCE IV PUSH Last administered on 09/29/17at 11:46; Start 09/29/17 at 11:45; Stop 09/29/17 at 12:35; Status DC Insulin Human Regular (NovoLIN R INJ) See Protocol Table ... AIR DEFENSE SPECIALIST PRN SQ SEE PROTOCOL TABLE; Start 09/29/17 at 15:30; Stop 10/02/17 at 15:29 Ketorolac Tromethamine (Toradol Inj) 30 mg Q12HR PRN IV PUSH BREAKTHROUGH PAIN Last administered on 09/29/17at 19:02; Start 09/29/17 at 18:45; Stop 10/04/17 at 18:44 Lactated Ringer's 1,000 ml @ 30 mls/hr Q24H PRN IV SEE LABEL COMMENTS Last administered on 09/29/17at 15:15; Start 09/29/17 at 15:15; Stop 10/02/17 at 15:14 Lactulose (Lactulose Liq) 30 ml DAILY PRN PO SEVERE CONSITIPATION; Start at 18:30 Magnesium Hydroxide (Milk Of Magnesia Liq) 30 ml Q12H PRN PO Mild constipation ; Start 09/29/17 at 18:30 Metoprolol Tartrate (Lopressor) 25 mg AIR DEFENSE SPECIALIST PRN PO SEE LABEL COMMENTS; Start 09/29/17 at 15:15; Stop 10/02/17 at 15:14 Miscellaneous Information ALL NURSING DEPARTME... UNSCH PRN .XX SEE LABEL COMMENTS; Start 09/29/17 at 18:55; Stop 09/30/17 at 18:54 Miscellaneous Information (Post-op Orders (for Pharmacy)) STAT ONCE XX ; Start 09/29/17 at 18:30; Stop 09/29/17 at 18:53; Status DC Morphine Sulfate (Morphine Inj) 2 mg Q4H PRN IV PUSH BREAKTHROUGH PAIN; Start 09/29/17 at 11:30 Naloxone HCl (Narcan Inj) 0.4 mg UNSCH PRN IV PUSH SEE LABEL COMMENTS; Start at 11:30 Ondansetron HCl (Zofran Inj) 4 mg Q6H PRN IVP NAUSEA OR VOMITING; Start at 11:30 Povidone Iodine (Betadine 5% Antisepsis Kit) 1 applic AIR DEFENSE SPECIALIST PRN EACH NARE SEE LABEL COMMENTS; Start 09/29/17 at 15:15; Stop 10/02/17 at 15:14 Senna/Docusate Sodium (Jane-Colace) 1 tab BID PO Last administered on at 09:10; Start 09/29/17 at 21:00 Sennosides (Senokot) 17.2 mg Q12H PRN PO Moderate constipation; Start 09/29/17 at 18:30 Sodium Chloride 500 ml @ 30 mls/hr [id number] PRN IV SEE LABEL COMMENTS; Start at 15:15; Stop 10/02/17 at 15:14 Sodium Chloride (NS Flush) 2 ml BID IV FLUSH ; Start 09/29/17 at 21:00 A/P Assessment and Plan A/P Left foot fracture s/p Incision drainage debridement open fractures digits, fasciotomy (multiple) foot, repair of complex laceration >10cm continue with pain control- podiatry following. Coronary artery disease CABG in 2008, patient reports not taking metoprolol or Lipitor say is he stopped taking these medications for years ago. He is currently taking only aspirin. resume aspirin when ok with ortho- will consider adding metoprolol if BB stable. DVT prophylaxis ; when ok with podiatry. Gracie Bui MD Sep 30, 2017 12:42
--- NOTE | 2017-09-30 13:23 | PD.POD ---
Subjective Pain score: 7 Remarks Pain is somewhat controlled with PO meds Past Med/Surg/Social History Social History Smoking Status: Current Every Day Smoker Objective Vital Signs Vital Signs Date Time Temp Pulse Resp B/P (MAP) Pulse Ox O2 Delivery O2 Flow Rate FiO2 09/30/17 11:38 96.7 66 18 133/74 (93) 97 09/30/17 09:55 98 21 09/30/17 07:37 96.6 67 18 114/68 (83) 97 09/30/17 07:34 Room Air 09/30/17 04:11 97.6 81 18 115/86 (96) 99 09/30/17 00:16 96.7 60 18 110/60 (77) 98 09/29/17 20:40 96.3 89 18 98/58 (71) 98 09/29/17 20:10 80 14 101/60 (74) 98 Nasal Cannula 2 09/29/17 20:00 72 14 98/51 (67) 98 Nasal Cannula 2 09/29/17 19:45 75 14 111/63 (79) 96 Nasal Cannula 2 09/29/17 19:30 79 14 104/52 (69) 99 Nasal Cannula 2 09/29/17 19:15 77 14 110/54 (72) 100 Nasal Cannula 2 09/29/17 19:00 77 14 131/75 (93) 100 Nasal Cannula 2 09/29/17 18:45 87 14 130/78 (95) 100 Nasal Cannula 2 09/29/17 18:35 98.0 94 14 132/78 (96) 99 Nasal Cannula 2 09/29/17 14:50 09/29/17 14:18 96 Coded Allergies: No Known Allergies (Unverified , 09/29/17) Medications and IVs Administered Medications Medications (Trade) Dose Ordered Sig/Rupa Route PRN Reason Start Time Stop Time Status Last Admin Dose Admin Sodium Chloride 1,000 ml @ 100 mls/hr Q10H IV 09/29/17 12:00 09/29/17 19:04 Senna/Docusate Sodium (Jane-Colace) 1 tab BID PO 09/29/17 21:00 09/30/17 09:10 Acetaminophen/ Hydrocodone Bitart ([place] 10-325 Mg) 1 tab Q4H PRN PO PAIN SCALE 6 TO 10 09/29/17 11:30 09/30/17 12:56 Lactated Ringer's 1,000 ml @ 30 mls/hr Q24H PRN IV SEE LABEL COMMENTS 09/29/17 15:15 10/02/17 15:14 09/29/17 15:15 Ketorolac Tromethamine (Toradol Inj) 30 mg Q12HR PRN IV PUSH BREAKTHROUGH PAIN 09/29/17 18:45 10/04/17 18:44 09/29/17 19:02 Other Results Laboratory Tests Test 09/29/17 10:15 09/30/17 06:35 White Blood Count 15.1 TH/MM3 13.3 TH/MM3 Red Blood Count 5.26 MIL/MM3 4.43 MIL/MM3 Hemoglobin 15.7 GM/DL 13.1 GM/DL Hematocrit 46.1 % 39.3 % Mean Corpuscular Volume 87.6 FL 88.6 FL Mean Corpuscular Hemoglobin 29.9 PG 29.5 PG Mean Corpuscular Hemoglobin Concent 34.1 % 33.3 % Red Cell Distribution Width 14.4 % 14.4 % Platelet Count 151 TH/MM3 137 TH/MM3 Mean Platelet Volume 10.3 FL 10.4 FL Neutrophils (%) (Auto) 78.9 % 72.1 % Lymphocytes (%) (Auto) 12.5 % 13.0 % Monocytes (%) (Auto) 6.8 % 11.5 % Eosinophils (%) (Auto) 1.0 % 2.1 % Basophils (%) (Auto) 0.8 % 1.3 % Neutrophils # (Auto) 11.9 TH/MM3 9.6 TH/MM3 Lymphocytes # (Auto) 1.9 TH/MM3 1.7 TH/MM3 Monocytes # (Auto) 1.0 TH/MM3 1.5 TH/MM3 Eosinophils # (Auto) 0.2 TH/MM3 0.3 TH/MM3 Basophils # (Auto) 0.1 TH/MM3 0.2 TH/MM3 CBC Comment DIFF FINAL DIFF FINAL Differential Comment Laboratory Tests Test 09/29/17 10:15 09/30/17 06:35 Blood Urea Nitrogen 10 MG/DL 10 MG/DL Creatinine 0.91 MG/DL 0.78 MG/DL Random Glucose 99 MG/DL 78 MG/DL Total Protein 7.2 GM/DL Albumin 3.2 GM/DL Calcium Level 8.3 MG/DL 8.0 MG/DL Alkaline Phosphatase 84 U/L Aspartate Amino Transf (AST/SGOT) 21 U/L Alanine Aminotransferase (ALT/SGPT) 20 U/L Total Bilirubin 0.4 MG/DL Sodium Level 138 MEQ/L 139 MEQ/L Potassium Level 3.7 MEQ/L 3.9 MEQ/L Chloride Level 105 MEQ/L 105 MEQ/L Carbon Dioxide Level 26.8 MEQ/L 27.8 MEQ/L Anion Gap 6 MEQ/L 6 MEQ/L Estimat Glomerular Filtration Rate 86 ML/MIN 103 ML/MIN Triglycerides Level 82 MG/DL Cholesterol Level 174 MG/DL LDL Cholesterol 99 MG/DL HDL Cholesterol 58.3 MG/DL Cholesterol/HDL Ratio 2.98 RATIO Microbiology Date/Time Source Procedure Growth Status 09/29/17 17:25 Wound Foot Fungal Smear Pending Received 09/29/17 17:25 Wound Foot Fungal Culture Pending Received 09/29/17 17:25 Wound Foot Acid Fast Stain Pending Received 09/29/17 17:25 Wound Foot Mycobacterial Culture Pending Received 09/29/17 17:25 Wound Foot Gram Stain - Final Resulted 09/29/17 17:25 Wound Foot Wound Culture - Preliminary NO GROWTH IN 24 HOURS. Resulted Exam-Podiatry Remarks Left foot with incision edges loosely coapted dorsum of the foot, medial arch anterior laceration of digits 1 through 5 well coapted, active bleeding remains with no pulsatile bleeding, no ischemic changes noted, no delayed capillary fill time and sensation intact, patient able to wiggle toes Assessment & Plan Diagnosis: (1) Crush injury of left foot ICD Codes: S97.82XA - Crushing injury of left foot, initial encounter (2) Laceration of left foot with complication ICD Codes: S91.312A - Laceration without foreign body, left foot, initial encounter (3) Open fracture of left toe ICD Codes: S92.912B - Unspecified fracture of left toe(s), initial encounter for open fracture (4) Accident caused by forklift ICD Codes: V83.9XXA - Unspecified occupant of special industrial vehicle injured in nontraffic accident, initial encounter A/P Packing removed from dorsal lateral incision and medial foot incision packing remains in the dorsal central incision fasciotomy. Postop day 1, bandages changed splint reapplied, physical therapy okay for nonweightbearing with walker ambulation. Nursing to change bandage tomorrow to see if active bleeding remains. If pain well-controlled and bleeding has subsided okay to DC tomorrow. Home health wound care ordered for every other day. Spoke with the nurse to allow for Toradol q 12 h. Problem Qualifiers (1) Crush injury of left foot: Qualified Codes: S97.82XD - Crushing injury of left foot, subsequent encounter (2) Laceration of left foot with complication: Qualified Codes: S91.312D - Laceration without foreign body, left foot, subsequent encounter (3) Open fracture of left toe: (4) Accident caused by forklift: Qualified Codes: V83.9XXD - Unspecified occupant of special industrial vehicle injured in nontraffic accident, subsequent encounter Ibrahima Mccoy DPM Sep 30, 2017 13:23
[2017-09-30] MEDS: KETOROLAC TROMETHAMINE 30 MG/ML (IVP) VIAL IV PUSH PRN (14:13)
--- NOTE | 2017-09-30 14:40 | HHI.FF ---
Face to Face Verification Diagnosis: (1) Crush injury of left foot Home Health Nursing Order: Medical education Signs/symptoms of disease process Wound care and dressing changes I have seen patient Sharif Torres on 09/30/17. My clinical findings support the need for the requested home health care services because: Ltd mobility - disease progression I certify that my clinical findings support that this patient is homebound because: Unsteady gait/balance Gracie Bui MD Sep 30, 2017 14:40
--- NOTE | 2017-09-30 15:32 | MP ---
cc: [facility] DATE OF SURGERY: 09/30/2017 PREOPERATIVE DIAGNOSIS: 1. Crush injury left foot. 2. Complex laceration left foot 3. Open fracture of hallux, accident caused by forklift. POSTOPERATIVE DIAGNOSIS 1. Crush injury left foot. 2. Complex laceration left foot 3. Open fracture of hallux, accident caused by forklift. PROCEDURES PERFORMED 1. Incision and drainage debridement, open fractures. 2. Multiple fasciotomies dorsum of the foot and medial foot. Superficial and deep compartment and repair of complex laceration greater than 10 cm. FINDINGS Overall viability of the foot noted with blood flow and capillary fill time to the digits. COMPLICATIONS None. Deep culture taken to bone for micro ESTIMATED BLOOD LOSS Approximately 100 ml's. ANESTHESIA General with local, approximately 30 cc of 0.25% Marcaine plain was infiltrated about the patient's ankle and dorsum of foot DRAINS: Quarter inch iodoform packing IV FLUIDS Noted. ANESTHESIA: Please see anesthesia report. PLAN OF ACTIVITY: Monitor over the next 1-2 days for viability of the foot and pain control. JUSTIFICATION FOR PROCEDURE: A 56-year-old male who was working, sustained an injury to his foot and a forklift combined. The patient had a partial degloving injury which was beyond the repair of the ED services was consulted. The patient was educated on risks including but not limited to numbness, burning, tingling, stiffness, development of nerve syndrome, need for more surgery at a later date including but not limited to amputation of digits or partial amputation of foot. No guarantees were given or implied regarding the outcome. PROCEDURE IN DETAIL Under mild sedation the patient was brought to the operating room, placed on the operative the supine position following the induction of general anesthesia the patient's left lower extremity was then scrubbed, prepped and draped in the usual aseptic fashion. The foot was elevated and examined. There is noted to be a tight medial foot as well as the dorsum of the foot at this time we decided to perform fasciotomy to parallel incisions were made over the dorsal aspect of the second and fourth metatarsals out is to gain access to the interspaces 2, 3 and 4. There is noted to be positive pressure within the compartments and extravasation of serosanguineous fluid. The foot became soft after the fasciotomies were performed. Next a medial instep incision was made just at the level of there is a mild laceration just proximal to the first MPJ. Sharp and blunt dissection was carried down to the abductor hallucis muscle belly, that was done were retracted plantarly, and then the deep layer of the foot was then probed for deep fluid and blood collection. There is noted to be minimal fluid collection. Utilizing pulse lavage the laceration that extended from the medial aspect of the hallux down to the first second, third and fourth interspace linearly was then lavaged and debrided. Distal tuft fracture that was noted on the x-ray within the plantar pole of the hallux fat pad was then debrided before it would most likely become nonviable and possibly adenitis for infection. At this time of multiple Vicryl sutures were used to loosely coapt the deep dermis only at the level of the hallux first interspace, second interspace, third interspace as well as fourth interspace. Once this was performed nylon was then used to close the wound utilizing multiple interrupted sutures styling technique. Next, the dorsal fasciotomy sites were packed open and loosely coapted utilizing retention sutures. Injectable at this time, a posterior ankle and dorsal ankle block was then performed to assist with pain control after surgery. A bulky bandage was placed on the viable digits. Good capillary fill time noted. The patient was then positioned within a Awan mildly compressive dressing and a posterior splint. The patient was then transferred from OR to PACU with all vital signs stable. I will change the bandage within the next 12 to 18 hours anticipate DC in one to two days pending pain control and viability of the foot. YURI Gallagher /6:40 PM /2:42 PM
[2017-09-30 16:45] LABS: HEMOGLOBIN A1C 5.8 % (4.3-6.0)
--- NOTE | 2017-09-30 18:26 | EKG ---
Date Performed: 09/29/2017 Time Performed: 16:31:07 PTAGE: 56 years EKG: Sinus rhythm BORDERLINE LEFT AXIS DEVIATION BORDERLINE ECG NO PREVIOUS TRACING DOCTOR: Dina Bolanos Interpretating Date/Time 09/30/2017 18:20:48
[2017-10-01] MEDS: ACETAMINOPHEN/HYDROcodone 325 MG/10 MG TAB PO PRN ×3 (05:39→14:23)
[2017-10-01] MEDS: DOCUSATE SODIUM 50 MG/SENNA 8.6 MG TAB PO SCH (07:36)
--- NOTE | 2017-10-01 07:38 | PD.POD ---
Subjective Pain score: 7 Remarks Pain is under better control, ready to go home Past Med/Surg/Social History Social History Smoking Status: Current Every Day Smoker Objective Vital Signs Vital Signs Date Time Temp Pulse Resp B/P (MAP) Pulse Ox O2 Delivery O2 Flow Rate FiO2 09/30/17 23:42 96.9 86 18 136/66 (89) 95 09/30/17 21:48 98.1 84 18 146/74 (98) 93 09/30/17 15:30 98.0 86 18 126/60 (82) 95 09/30/17 11:38 96.7 66 18 133/74 (93) 97 09/30/17 09:55 98 21 09/30/17 07:37 96.6 67 18 114/68 (83) 97 09/30/17 07:34 Room Air Coded Allergies: No Known Allergies (Unverified , 09/29/17) Medications and IVs Administered Medications Medications (Trade) Dose Ordered Sig/Rupa Route PRN Reason Start Time Stop Time Status Last Admin Dose Admin Sodium Chloride 1,000 ml @ 100 mls/hr Q10H IV 09/29/17 12:00 09/29/17 19:04 Senna/Docusate Sodium (Jane-Colace) 1 tab BID PO 09/29/17 21:00 09/30/17 09:10 Acetaminophen/ Hydrocodone Bitart ([place] 10-325 Mg) 1 tab Q4H PRN PO PAIN SCALE 6 TO 10 09/29/17 11:30 10/01/17 05:39 Lactated Ringer's 1,000 ml @ 30 mls/hr Q24H PRN IV SEE LABEL COMMENTS 09/29/17 15:15 10/02/17 15:14 09/29/17 15:15 Ketorolac Tromethamine (Toradol Inj) 30 mg Q12HR PRN IV PUSH BREAKTHROUGH PAIN 09/29/17 18:45 10/04/17 18:44 09/30/17 14:13 Other Results RUN DATE: 09/30/17 [facility] LIVE PAGE 1 RUN TIME: [address];[place] [address] DOCTOR REPORT PATIENT Name: JEREMIE LARA Age/Sex:56/M Attend Dr: Gracie Bui MD Unit#: [id number] Status: ADM IN Location: N06A 1632 -A Re09/29/17 : 1960 SPECIMEN #: [id number] KENN: 09/29/171724 STATUS: RES RECD: 09/29/172050 SUBM DR: Ibrahima Mccoy DPM PT ID: 's BOX/PROVIDER ID: SOURCE: WOUND COPY TO: Tennille Grey MD SPDESC: FOOT NON-STAFF BILL CLIENT: ORDERED: WOUND CULTURE COMMENTS: Site description: DEEP WOUND CULTURE LEFT FOOT QUERIES: Method of Collection: SWAB ACT WKST: GS 09/30/17 #1 WOUNDS 09/30/17 #1 Procedure Result Verified Site GRAM STAIN Final 09/30/17-925 RARE WBC NO ORGANISMS SEEN WOUND CULTURE Preliminary 09/30/17-130 NO GROWTH IN 24 HOURS. Exam-Podiatry Remarks Left foot with incision edges loosely coapted dorsum of the foot, medial arch anterior laceration of digits 1 through 5 well coapted, no bleeding remains with no pulsatile bleeding, no ischemic changes noted, no delayed capillary fill time and sensation intact, patient able to wiggle toes Assessment & Plan Diagnosis: (1) Crush injury of left foot ICD Codes: S97.82XA - Crushing injury of left foot, initial encounter (2) Laceration of left foot with complication ICD Codes: S91.312A - Laceration without foreign body, left foot, initial encounter (3) Open fracture of left toe ICD Codes: S92.912B - Unspecified fracture of left toe(s), initial encounter for open fracture (4) Accident caused by forklift ICD Codes: V83.9XXA - 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
[2017-10-01 08:00] VITALS: BP 119/67; PULSE 89; RESP 16; TEMP 96.7; O2SAT 95
[2017-10-01] MEDS: SODIUM CHLORIDE 0.9% FLUSH 10 ML FLUSH IV FLUSH SCH (09:00)
[2017-10-01 09:44] VITALS: O2SAT 95
--- NOTE | 2017-10-01 11:31 | HHI.PR ---
Subjective Remarks in no acute distress. pain is controlled. no fever. no new complaints and wants to go home today. d/w the RN and no acute issues over night. Objective Vitals Vital Signs Date Time Temp Pulse Resp B/P (MAP) Pulse Ox O2 Delivery O2 Flow Rate FiO2 10/01/17 09:44 95 10/01/17 08:00 96.7 89 16 119/67 (84) 95 09/30/17 23:42 96.9 86 18 136/66 (89) 95 09/30/17 21:48 98.1 84 18 146/74 (98) 93 09/30/17 15:30 98.0 86 18 126/60 (82) 95 09/30/17 11:38 96.7 66 18 133/74 (93) 97 I/O 09/30/17 09/30/17 09/30/17 10/01/17 10/01/17 10/01/17 07:00 15:00 23:00 07:00 15:00 23:00 Intake Total 480 ml 900 ml 720 ml Output Total 500 ml 600 ml Balance -20 ml 300 ml 720 ml Intake Oral 480 ml 900 ml 720 ml Output Urine Total 500 ml 600 ml # Voids 1 1 6 # Bowel Movements 0 0 Result Diagram: 09/30/17 0635 09/30/17 0635 Imaging Last Impressions Foot X-Ray 09/29/17 0000 Signed Impressions: Service Date/Time: Friday, September 29, 2017 10:32 - CONCLUSION: Acute tuft fractures of the first and third toes. Faraz Abrams Jr., MD Objective Remarks GENERAL: This is a well-nourished, well-developed patient, in no apparent distress. CARDIOVASCULAR: Regular rate and regular rhythm without murmurs, gallops, or rubs. RESPIRATORY: Clear to auscultation. Breath sounds equal bilaterally. No wheezes , rales, or rhonchi. GASTROINTESTINAL: Abdomen soft, non-tender, nondistended. Normal, active bowel sounds MUSCULOSKELETAL: left leg covered with clean dressing. NEURO: Alert & Oriented x4 to person, place, time, situation. Moves all ext x4 Procedures Incision drainage debridement open fractures digits, fasciotomy (multiple) foot , repair of complex laceration >10cm Medications and IVs Inpatient Medications Acetaminophen (Tylenol) 650 mg Q4H PRN PO TEMP > 100.4; Start 09/29/17 at 11:30 Acetaminophen/ Hydrocodone Bitart ([place] 5-325 Mg) 1 tab Q4H PRN PO PAIN SCALE 3 TO 5; Start 09/29/17 at 11:30 Acetaminophen/ Hydrocodone Bitart ([place] 10-325 Mg) 1 tab Q4H PRN PO PAIN SCALE 6 TO 10 Last administered on 10/01/17at 09:47; Start 09/29/17 at 11:30 Bisacodyl (Dulcolax Supp) 10 mg DAILY PRN RECTAL SEVERE CONSITIPATION; Start at 18:30 Cefazolin Sodium/ Dextrose 50 ml @ 100 mls/hr ONCE ONCE IV Last administered on 09/29/17at 10:46; Start 09/29/17 at 10:15; Stop 09/29/17 at 12:30; Status DC Chlorhexidine Gluconate (Chlorhexidine 2% Cloth) 3 pack PEELED POTATO INSPECTOR PRN TOPICAL SEE LABEL COMMENTS; Start 09/29/17 at 15:30; Stop 10/02/17 at 15:29 Gentamicin Sulfate/Sodium Chloride 100 ml @ 200 mls/hr ONCE ONCE IV Last administered on 09/29/17at 10:55; Start 09/29/17 at 10:15; Stop 09/29/17 at 12:30 ; Status DC Hydromorphone HCl (Dilaudid Pf Inj) 1 mg ONCE ONCE IV PUSH Last administered on 09/29/17at 11:46; Start 09/29/17 at 11:45; Stop 09/29/17 at 12:35; Status DC Insulin Human Regular (NovoLIN R INJ) See Protocol Table ... PEELED POTATO INSPECTOR PRN SQ SEE PROTOCOL TABLE; Start 09/29/17 at 15:30; Stop 10/02/17 at 15:29 Ketorolac Tromethamine (Toradol Inj) 30 mg Q12HR PRN IV PUSH BREAKTHROUGH PAIN Last administered on 09/30/17at 14:13; Start 09/29/17 at 18:45; Stop 10/04/17 at 18:44 Lactated Ringer's 1,000 ml @ 30 mls/hr Q24H PRN IV SEE LABEL COMMENTS Last administered on 09/29/17at 15:15; Start 09/29/17 at 15:15; Stop 10/02/17 at 15:14 Lactulose (Lactulose Liq) 30 ml DAILY PRN PO SEVERE CONSITIPATION; Start at 18:30 Magnesium Hydroxide (Milk Of Magnesia Liq) 30 ml Q12H PRN PO Mild constipation ; Start 09/29/17 at 18:30 Metoprolol Tartrate (Lopressor) 25 mg PEELED POTATO INSPECTOR PRN PO SEE LABEL COMMENTS; Start 09/29/17 at 15:15; Stop 10/02/17 at 15:14 Miscellaneous Information ALL NURSING DEPARTME... UNSCH PRN .XX SEE LABEL COMMENTS; Start 09/29/17 at 18:55; Stop 09/30/17 at 18:54; Status DC Miscellaneous Information (Post-op Orders (for Pharmacy)) STAT ONCE XX ; Start 09/29/17 at 18:30; Stop 09/29/17 at 18:53; Status DC Morphine Sulfate (Morphine Inj) 2 mg Q4H PRN IV PUSH BREAKTHROUGH PAIN; Start 09/29/17 at 11:30 Naloxone HCl (Narcan Inj) 0.4 mg UNSCH PRN IV PUSH SEE LABEL COMMENTS; Start at 11:30 Ondansetron HCl (Zofran Inj) 4 mg Q6H PRN IVP NAUSEA OR VOMITING; Start at 11:30 Povidone Iodine (Betadine 5% Antisepsis Kit) 1 applic PEELED POTATO INSPECTOR PRN EACH NARE SEE LABEL COMMENTS; Start 09/29/17 at 15:15; Stop 10/02/17 at 15:14 Senna/Docusate Sodium (Jane-Colace) 1 tab BID PO Last administered on at 07:36; Start 09/29/17 at 21:00 Sennosides (Senokot) 17.2 mg Q12H PRN PO Moderate constipation; Start 09/29/17 at 18:30 Sodium Chloride 500 ml @ 30 mls/hr [id number] PRN IV SEE LABEL COMMENTS; Start at 15:15; Stop 10/02/17 at 15:14 Sodium Chloride (NS Flush) 2 ml BID IV FLUSH ; Start 09/29/17 at 21:00 A/P Assessment and Plan A/P Left foot fracture s/p Incision drainage debridement open fractures digits, fasciotomy (multiple) foot, repair of complex laceration >10cm continue with pain control- podiatry follow-up appreciated; outpatient f/u. Coronary artery disease CABG in 2008, patient reports not taking metoprolol or Lipitor say is he stopped taking these medications for years ago. He is currently taking only aspirin. resume aspirin when ok with ortho- will consider adding metoprolol as outpatient if BB stable. DVT prophylaxis ; when ok with podiatry. Discharge Planning dc home when C has been arranged. see med list. f/u; pcp and podiatry. d/w the patient, RN and case management. Gracie Bui MD Oct 01, 2017 11:31
[2017-10-01] MEDS ORDERED: HYDR-3516 PO (11:32)
[2017-10-01] MEDS ORDERED: ASPI-183 PO (11:32)
--- NOTE | 2017-10-01 11:33 | HHI.DS ---
Discharge Summary Admission Date Sep 29, 2017 at 11:34 Discharge Date: Oct 01, 2017 Admitting Diagnosis foot degloving, open fracture (1) Crush injury of left foot ICD Code: S97.82XA - Crushing injury of left foot, initial encounter Procedures Incision drainage debridement open fractures digits, fasciotomy (multiple) foot , repair of complex laceration >10cm Brief History - From Admission Patient is a 56 year old male who comes in after an injury with a forklift. He says that the wheels were not turning and he tried to fix it somehow and it went over his foot. He has a h/p Coronary artery disease CABG in 2008, patient reports not taking metoprolol or Lipitor say is he stopped taking these medications for years ago. He is currently taking only aspirin. He denies any chest pain, palpitations, shortness of breath, nausea, lightheadedness. He was noted tachycardic on admission and was blood pressure readings are higher side however he was seen in pain at that time. Current medications are controlling the pain. Is nothing by mouth. Discussed with Dr. Mccoy podiatry plan for surgery at 4 PM today. No other complaints at this time. CBC/BMP: 09/30/17 0635 09/30/17 0635 Significant Findings Laboratory Tests Test 09/29/17 10:15 09/30/17 06:35 White Blood Count 15.1 TH/MM3 (4.0-11.0) 13.3 TH/MM3 (4.0-11.0) Neutrophils (%) (Auto) 78.9 % (16.0-70.0) 72.1 % (16.0-70.0) Neutrophils # (Auto) 11.9 TH/MM3 (1.8-7.7) 9.6 TH/MM3 (1.8-7.7) Monocytes # (Auto) 1.0 TH/MM3 (0-0.9) 1.5 TH/MM3 (0-0.9) Albumin 3.2 GM/DL (3.4-5.0) Calcium Level 8.3 MG/DL (8.5-10.1) 8.0 MG/DL (8.5-10.1) Estimat Glomerular Filtration Rate 86 ML/MIN (>89) Red Blood Count 4.43 MIL/MM3 (4.50-5.90) Platelet Count 137 TH/MM3 (150-450) Monocytes (%) (Auto) 11.5 % (0.0-8.0) Imaging Last Impressions Foot X-Ray 09/29/17 0000 Signed Impressions: Service Date/Time: Friday, September 29, 2017 10:32 - CONCLUSION: Acute tuft fractures of the first and third toes. Faraz Abrams Jr., MD PE at Discharge GENERAL: This is a well-nourished, well-developed patient, in no apparent distress. CARDIOVASCULAR: Regular rate and regular rhythm without murmurs, gallops, or rubs. RESPIRATORY: Clear to auscultation. Breath sounds equal bilaterally. No wheezes , rales, or rhonchi. GASTROINTESTINAL: Abdomen soft, non-tender, nondistended. Normal, active bowel sounds MUSCULOSKELETAL: left leg covered with clean dressing. NEURO: Alert & Oriented x4 to person, place, time, situation. Moves all ext x4 Hospital Course Left foot fracture s/p Incision drainage debridement open fractures digits, fasciotomy (multiple) foot, repair of complex laceration >10cm continue with pain control- podiatry follow-up appreciated; outpatient f/u. Coronary artery disease CABG in 2008, patient reports not taking metoprolol or Lipitor say is he stopped taking these medications for years ago. He is currently taking only aspirin. resume aspirin when ok with ortho- will consider adding metoprolol as outpatient if BB stable. Pt Condition on Discharge: Stable Discharge Disposition: Disch w/ Home Health Serv Discharge Time: <= 30 minutes Discharge Instructions DIET: Follow Instructions for: Heart Healthy Diet Activities you can perform: Non Weight Bearing Gracie Bui MD Oct 01, 2017 11:33
[2017-10-01 12:00] VITALS: BP 138/78; PULSE 82; RESP 16; TEMP 98.8; O2SAT 95
== END 2017-10-01 17:13 | disposition home health service (06) | DRG 909 ==
LOC: NEPE 10:06 → NEDA 11:34 → N06A 20:17
PROVIDERS: ADMIT Internal Medicine; ATTEND Internal Medicine
PROC: 0J8R0ZZ Division of Left Foot Subcutaneous Tissue and Fascia, Open Approach (ICD-10-PCS; 2017-09-29)
PROC: 0JQR0ZZ Repair Left Foot Subcutaneous Tissue and Fascia, Open Approach (ICD-10-PCS; 2017-09-29)
PROC: 3E0T3BZ Introduction of Anesthetic Agent into Peripheral Nerves and Plexi, Percutaneous Approach (ICD-10-PCS; 2017-09-29)
PROC: 0JDR0ZZ Extraction of Left Foot Subcutaneous Tissue and Fascia, Open Approach (ICD-10-PCS; principal; 2017-09-29 16:50)
DX: S97.82XA Crushing injury of left foot, initial encounter (principal); E78.5 Hyperlipidemia, unspecified; I25.2 Old myocardial infarction; S92.422B Displaced fracture of distal phalanx of left great toe, initial encounter for open fracture; S92.532B Displaced fracture of distal phalanx of left lesser toe(s), initial encounter for open fracture; I25.10 Atherosclerotic heart disease of native coronary artery without angina pectoris; F17.210 Nicotine dependence, cigarettes, uncomplicated; W23.0XXA Caught, crushed, jammed, or pinched between moving objects, initial encounter; Z90.81 Acquired absence of spleen; Z95.1 Presence of aortocoronary bypass graft
CPT/HCPCS: 73630; 80048; 80053; 80061; 83036; 85025; 85610; 85730; 86850; 86900; 86901; 87015; 87070; 87102; 87116; 87205; 87206; 93005; 94150; 96374; 96375; J0690; J1170; J1580; J1885; J2175; J2250; J2270; J2370; J2405; J2710; J3010; J7030; J7120